=== PATIENT | male | born 1975 | race Caucasian/White ===

== ENCOUNTER 2017-09-21 14:52 | Inpatient (IN) | payer OTHER ==
[~2017-09-21] VITALS: Ht 180.3 cm; Wt 109.6 kg
[~2017-09-21 14:52] MED LIST: ACET325; CENTTAB9; DIPH2%T; HYDR10TA16
[2017-09-21 17:54] VITALS: BP 137/89; PULSE 87; RESP 17; TEMP 98.7; O2SAT 99
[2017-09-21] MEDS ORDERED: LORazepam 2 MG/ML VIAL IV PUSH PRN ×4 (18:30)
[2017-09-21] MEDS ORDERED: ALUMINUM/MAGNESIUM/SIMETH 30 ML CUP PO PRN (18:30)
[2017-09-21] MEDS ORDERED: hydrOXYzine HCL 50 MG TAB PO PRN (18:30)
[2017-09-21] MEDS ORDERED: MAGNESIUM HYDROXIDE SUSP 30 ML CUP PO PRN (18:30)
[2017-09-21] MEDS ORDERED: LORazepam 1 MG TAB PO PRN (18:30)
[2017-09-21] MEDS ORDERED: FLUMAZENIL 0.5 MG/5 ML VIAL IV PUSH PRN (18:30)
[2017-09-21] MEDS ORDERED: BENZTROPINE MESYLATE 1 MG TAB PO PRN (18:30)
[2017-09-21] MEDS ORDERED: BENZTROPINE MESYLATE 2 MG/2 ML VIAL IM PRN (18:30)
[2017-09-21] MEDS ORDERED: diphenhydrAMINE HCL 50 MG CAP PO PRN (18:30)
[2017-09-21] MEDS ORDERED: LORazepam 2 MG TAB PO PRN (18:30)
[2017-09-21] MEDS ORDERED: ACETAMINOPHEN 325 MG TAB PO PRN (18:30)
[2017-09-22 05:45] VITALS: BP 129/82; PULSE 90; RESP 17; TEMP 97.5; O2SAT 98
[2017-09-22] MEDS ORDERED: LEVOTHYROXINE SODIUM 50 MCG TAB PO SCH (06:00)
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
[2017-09-22 07:57] LABS: BASOPHIL # 0.1 TH/MM3 (0-0.2); BASOPHIL % 0.9 % (0.0-2.0); EOSINOPHIL # 0.1 TH/MM3 (0-0.4); EOSINOPHIL % 1.6 % (0.0-4.0); HEMATOCRIT 45.9 % (39.0-51.0); HEMO FLAGS DIFF FINAL; LYMPHOCYTE # 2.4 TH/MM3 (1.0-4.8); MEAN CORPUSCULAR HEMOGLOBIN 29.6 PG (27.0-34.0); MONO % 8.5 % (0.0-8.0); PLATELET COUNT 330 TH/MM3 (150-450); RED BLOOD COUNT 5.27 MIL/MM3 (4.50-5.90); RED CELL DISTRIBUTION WIDTH 13.4 % (11.6-17.2); WHITE BLOOD COUNT 8.3 TH/MM3 (4.0-11.0)
[2017-09-22 08:27] LABS: ANION GAP 11 MEQ/L (5-15); AST (GOT) 16 U/L (15-37); BICARBONATE 20.4 MEQ/L (21.0-32.0); BLOOD UREA NITROGEN 12 MG/DL (7-18); CHLORIDE 106 MEQ/L (98-107); GLOMERULAR FILTRATION RATE 79 ML/MIN (>89); POTASSIUM 3.6 MEQ/L (3.5-5.1); SODIUM (NA) 137 MEQ/L (136-145)
[2017-09-22 08:40] LABS: ALKALINE PHOSPHATASE 85 U/L (45-117); ALT (GPT) 43 U/L (12-78); HDL CHOLESTEROL 55.8 MG/DL (40.0-60.0); LDL CHOLESTEROL 138 MG/DL (0-99); TOTAL BILIRUBIN ADULT 0.4 MG/DL (0.2-1.0)
[2017-09-22] MEDS ORDERED: THIAMINE HCL 100 MG TAB PO SCH (09:00)
[2017-09-22] MEDS ORDERED: LISINOPRIL 20 MG TAB PO SCH (09:00)
[2017-09-22] MEDS ORDERED: NICOTINE 21 MG/24 HR PATCH T-DERMAL SCH (09:00)
[2017-09-22] MEDS ORDERED: REMOVE OLD PATCH T-DERMAL SCH (09:00)
[2017-09-22] MEDS ORDERED: FOLIC ACID 1 MG TAB PO SCH (09:00)
[2017-09-22] MEDS ORDERED: LEVO.05 PO (10:57)
[2017-09-22] MEDS ORDERED: LISI-515 PO (10:57)
[2017-09-22 13:24] LABS: HEMOGLOBIN A1b 1.4 %; HEMOGLOBIN Ao 86.3 %; HEMOGLOBIN P3 3.5 %
== END 2017-09-22 12:10 | disposition short-term general hospital (02) | DRG 897 ==
LOC: H270 17:36
PROVIDERS: ADMIT Psychiatry & Neurology Psychiatry; ATTEND Psychiatry & Neurology Psychiatry
DX: F10.20 Alcohol dependence, uncomplicated (principal); F31.9 Bipolar disorder, unspecified; I10 Essential (primary) hypertension; E03.9 Hypothyroidism, unspecified; E78.5 Hyperlipidemia, unspecified
CPT/HCPCS: 80053; 80061; 83036; 84439; 84443; 85025; Q0163

== ENCOUNTER 2018-05-17 13:19 | Inpatient (IN) ==
[2018-05-17] MEDS ORDERED: Acetaminophen 325 MG Tablet PO PRN (18:15)
[2018-05-17] MEDS ORDERED: Aluminum/Magnesium/Simethacone Susp 30 ML UDC PO PRN (18:15)
[2018-05-17] MEDS ORDERED: traZODone 50 MG Tablet PO SCH (21:00)
[2018-05-18 09:45] LABS: Calcium 9.5 mg/dL (8.5-10.1); Carbon Dioxide 19.8 meq/L (21.0-32.0); Potassium 3.8 meq/L (3.5-5.1)
[2018-05-18 09:56] LABS: Chol/HDL Ratio 4.74 Ratio; HDL Cholesterol 54.8 mg/dL (40.0-60.0); Thyroid Stimulating Hormone 3.15 uIU/mL (0.358-3.740)
--- NOTE | 2018-05-18 11:02 | P.HPPSY ---
Provisional Diagnosis Admission Date: May 17, 2018 16:59 Roscoe I.: 1. Adjustment disorder with mixed disturbance of emotions and conduct 2. Alcohol dependence Roscoe II.: 1. 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 Express and informed consent means consent voluntarily given in writing, by a competent person, after sufficient explanation and disclosure of the subject matter involved to enable the person to make a knowing and willful decision without any element of force, fraud, deceit, duress, or other form of constraint or coercion. This person is 18 years of age or older, is not now known to be incompetent to consent to treatment with a guardian advocate, and does not have a health care surrogate or proxy currently making medical treatment decisions. I have found this person to be one of the following: [x] Competent to provide express and informed consent, as defined above, for voluntary admission to this facility and is competent to provide express and informed consent for treatment. He/she has the consistent capacity to make well reasoned, willful, and knowing decisions concerning his or her medical or mental health treatment. The person fully and consistently understands the purpose of the admission for examination/placement and is fully capable of personally exercising all rights [place] Incompetent to provide express and informed consent to voluntary admission, and this is incompetent to provide express and informed consent to treatment. The person must be transferred to involuntary status and a petition for a guardian advocate filed with the Circuit Court. [] Refusing to provide express and informed consent to voluntary admission but is competent to provide express and informed consent for treatment. The person must be discharged or transferred to involuntary status. Form shall be completed within 24 hours of a person's arrival at the receiving facility and filed in the clinical record of each person: 1. Admitted on a voluntary basis 2. Permitted to provide express and informed consent to his/her own treatment 3. Allowed to transfer from involuntary to voluntary status 4. Prior to permitting a person to consent to his or her own treatment after having been previously found incompetent to consent to treatment. History of Present Illness Capacity: Has capacity Chief Complaint: Overdose History of Present Illness: Mr. Montoya is a 42 year-old male with a history of BPAD and alcohol use issues who presents in transfer from [facility] under a [place] [facility] following poly-drug overdose. Documentation from outside hospital reviewed. Patient took 10 Depakote 500mg tablets and an uncertain quantity of gabapentin and Vistaril. He was admitted medically to [facility] for management of his overdose. Psychiatry consultation was obtained at [facility]. Reviewing our EMR, I note that the patient was admitted under my care last September following an overdose. He was transferred to [facility] under a P.[facility]. at that time. Patient seen and examined with counselor and nurse. Chart reviewed. Case discussed with nursing staff. On my examination today, patient presents as petulant and childlike. He seems more concerned with liberalizing his diet than with his psychiatric issues. He admits to having had suicidal thoughts "for the last month or two" but blames his presenting ingestion on alcohol intoxication. He says that he took 10 Depakote and an uncertain quantity of gabapentin and Vistaril. He denies ongoing suicidal ideation now. He says that he has been feeling more depressed of late because he sees himself as overweight and says that he feels like he is a "failure" and a "reject." He also notes that his mother has a lung nodule and continues to smoke, which is another stressor. He also reports feeling anxious and angry. Cluster B personality traits, chiefly borderline and narcissistic, are prominent. Besides the above, I can elicit no depressive symptoms. He has no hypomanic or manic symptoms at present. He denies any audiovisual hallucinations. I can elicit no delusional material. He denies homicidal ideation. The remainder of the psychiatric ROS is negative. The patient has no acute physical complaints. He begrudgingly agrees to remain for observation but somewhat defiantly notes that we cannot "keep me forever." Past psychiatric history: Patient has a historical diagnosis of bipolar disorder. He had an intake appointment recently at [facility] and has a follow-up appointment scheduled for this Thursday. He denies any interval psychiatric admissions or suicide attempts since he was here last September. He notes that after he was sent to [facility] last time he was referred for outpatient chem dep services. Family history: The patient denies any family history of mental illness or suicide. Chemical dependency history: The patient reports that his alcohol consumption is overall decreased versus his previous hospitalization here. He does note that he has been drinking somewhat more frequently in the last month, at least a couple of times a week. He says that prior to his ingestion and he had had a 60oz marc and 5 beers. He denies a history of DTs or seizures. No other substance use reported. No reported withdrawal symptoms. Social history: The patient lives with his parents. 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 He is high school educated. Denies any history. Denies any active legal issues noting "I have been a good boy." He denies any access to guns or firearms. He is single with no children. He identifies as homosexual. - Inpatient Certification I certify that the inpatient services were ordered in accordance with Medicare regulations governing the order. This includes certification that hospital inpatient services are reasonable and necessary and in the case of services not specified as inpatient-only under 42 CFR 419.22(n), that they are appropriately provided as inpatient services in accordance to with the 2-midnight benchmark under 43 CFR 412.3(e) I certify that inpatient psychiatric hospital services are medically necessary. Evaluation and treatment and/or diagnostic testing are expected to improve the patient's condition. The patient needs on a daily basis, active treatment furnished directly by or requiring the supervision of inpatient psychiatric facility personnel. Estimated Total Length of Stay (Days): 7 (5-7) Plans for Post Hospital Care: Not yet determined Review of Systems All other systems reviewed negative except as stated in HPI ON LICENSE OF [facility] - Medical History Medical History: Medical History (Last Updated 05/17/18 @ 18:56 by Thi Moore RN) ADHD Anxiety Depression Insomnia Schizophrenia - Substance Use Type Alcohol Frequency: 4-5 beers Comment: Patient reports in the past 2 months he has been drinking more than usual. He goes out a few times per week and has drinks when he goes out. Quality Measures - Patient Strengths Patient's strengths (minimum of 2): Attending to basic needs. Verbally fluent. Medications and Allergies Active Medications: Active Medications Acetaminophen (Tylenol) 650 mg PO Q4H PRN PRN Reason: Pain 1-5 or Temp >101F Al Hydrox/Mg Hydrox/Simethicone (Mag-Al Plus Susp Liq) 30 ml PO Q6H PRN PRN Reason: DYSPEPSIA Al Hydroxide/Mg Hydroxide (Milk Of Magnesia Liq) 30 ml PO Q12H PRN PRN Reason: Mild Constipation Folic Acid (Folic Acid) 1 mg PO DAILY [facility] Gabapentin (Neurontin) 300 mg PO TID [facility] Hydroxyzine HCl (Atarax) 50 mg PO Q6H PRN PRN Reason: ANXIETY Lisinopril (Prinivil) 20 mg PO DAILY [facility] Nicotine (Habitrol 14 Mg Patch.24 Hr) 1 patch T-DERMAL DAILY [facility] Pantoprazole Sodium (Protonix) 20 mg PO DAILY [facility] Patch Removal (Remove Old Patch) 0 each T-DERMAL DAILY [facility] Thiamine HCl (Vitamin B1) 100 mg PO DAILY [facility] Trazodone HCl (Desyrel) 50 mg PO HS [facility] Allergies Allergy/AdvReac Type Severity Reaction Status Date / Time cat dander Allergy Severe HIVES Unverified 06/16/17 19:57 egg Allergy Severe VOMIT Unverified 06/16/17 19:57 lactose AdvReac Severe VOMIT Unverified 06/16/17 19:57 Home Medications Medication Instructions Recorded Confirmed Type folic acid 1 mg PO DAILY 05/17/18 05/17/18 History gabapentin 300 mg PO TID 05/17/18 05/17/18 History hydroxyzine pamoate [Vistaril] 50 mg PO BID 05/17/18 05/17/18 History lisinopril 20 mg PO DAILY 05/17/18 05/17/18 History omeprazole 20 mg PO DAILY 05/17/18 05/17/18 History thiamine HCl (vitamin B1) 100 mg PO DAILY 05/17/18 05/17/18 History trazodone 50 mg PO HS 05/17/18 05/17/18 History Results - Labs CBC & Chem 7: 05/18/18 08:40 Labs: Laboratory Results - last 24 hr 05/18/18 08:40 Sodium 138 Potassium 3.8 Chloride 105 Carbon Dioxide 19.8 L Anion Gap 13 BUN 9 Creatinine 1.07 Estimated GFR 76 L Random Glucose 130 H Calcium 9.5 Triglycerides 307 H Cholesterol 260 H LDL Cholesterol, Calc 144 H HDL Cholesterol 54.8 Cholesterol/HDL Ratio 4.74 TSH 3.150 Labs from outside hospital reviewed (from 05/17 unless otherwise noted): CBC unremarkable CMP reveals mild ALT elevation at 62. Ammonia level 51 (down from max of 222 on 05/16) EtOH (05/16) 169 VPA level on 05/17 listed as 19.9 Exam Vital signs: Vital Signs 05/17/18 17:25 05/18/18 05:51 Temperature 98 F 97.6 F Pulse Rate 109 H 68 Respiratory Rate 20 17 Blood Pressure 159/94 H 143/84 H Pulse Oximetry 97 96 Intake & Output 05/17/18 05/18/18 05/18/18 18:59 06:59 18:59 Weight 230 kg Other: Weight On Admission 230 kg Narrative: Physical exam completed by provider at outside hospital. On my examination today, the patient appears to be in no acute physical distress. No motor abnormalities noted. No signs of intoxication or withdrawal noted. Labs and vital signs reviewed: Mental Status Examination Appearance: Appropriate Consciousness: Alert Orientation: x4 Motor Activity: Other (No motor abnormalities noted) Speech: Unremarkable Language: Adequate Fund of Knowledge: Adequate Attention and Concentration: Adequate Memory: Unremarkable (Grossly intact on clinical exam) Mood: Angry, Other (Dysphoric) Affect: Other (Consistent with mood) Thought Process & Associations: Intact, Logical, Linear Thought Content: Other (Minimizing circumstances of presentation here) Hallucination Type: None Delusion Type: None Suicidal Ideation: No (Unclear whether patient is reliable to contract for safety) Suicidal Plan: No Suicidal Intention: No Homicidal Ideation: No Homicidal Plan: No Homicidal Intention: No Insight: Poor Judgment: Impulsive Assessment and Plan - Assessment (1) Adjustment disorder with mixed disturbance of emotions and conduct Code(s): F43.25 - Adjustment disorder with mixed disturbance of emotions and conduct Status: Acute (2) Alcohol dependence Code(s): F10.20 - Alcohol dependence, uncomplicated Status: Chronic (3) Cluster B personality disorder Code(s): F60.9 - Personality disorder, unspecified Status: Suspected - Plan Plan: 42-year-old male with psychiatric history as detailed above who presents in transfer from outside hospital following polydrug overdose. On my examination today, the patient tends to minimize the circumstances of his presentation here and blames his overdose on his alcohol consumption. He does admit, however, that he has been having suicidal thoughts for the last few months and has been feeling more depressed. I suspect that a significant part of patient's presentation is mediated by a cluster B personality disorder with prominent narcissistic and borderline components. I will plan to admit the patient to the inpatient psychiatric unit for observation to ensure that there is no ongoing acute impairment in safety and for stabilization of his mood. Admit inpatient. Voluntary status. Initiate Latuda 40 mg with dinner for mood stabilization. Patient wishes to avoid significant weight gain and akathisia, and it is hoped that Latuda will meet these requirements. Resume gabapentin 300mg TID. Atarax as needed for anxiety. Trazodone as needed for sleep. R/B/ A for medications reviewed with patient. CIWA a scale with Ativan as needed for the management of any withdrawal. Seizure precautions. Check LFTs and ammonia. Vitals every shift. Counselor to see. Collateral information. Disposition planning. Estimated length of stay: 5-7 days. Justification for Continued Inpatient Stay: Medication changes. Monitoring for impairment in safety. Risk for decompensation in less restrictive environment. Discharge Planning: Pending outcome of observation Request Healthcare Surrogate/Guardian Advocate?: No
[2018-05-18 13:04] LABS: Hemoglobin A1c 5.2 % (4.3-6.0)
[2018-05-18] MEDS ORDERED: LORazepam 1 MG Tablet PO PRN (13:31)
[2018-05-18] MEDS: Lisinopril 20 MG Tablet PO SCH (15:28)
[2018-05-18] MEDS: Pantoprazole Sodium 20 MG DR Tablet PO SCH (15:29)
[2018-05-18 16:22] LABS: Albumin 4.3 g/dL (3.4-5.0)
[2018-05-18 16:24] LABS: Total Protein 8.3 g/dL (6.4-8.2)
[2018-05-18] MEDS ORDERED: traZODone 50 MG Tablet PO PRN (21:00)
[2018-05-19] MEDS: Pantoprazole Sodium 20 MG DR Tablet PO SCH (09:25)
[2018-05-19] MEDS: Lisinopril 20 MG Tablet PO SCH (09:26)
[2018-05-19] MEDS: Gabapentin 300 MG Capsule PO SCH ×3 (09:27→17:40)
[2018-05-19] MEDS: Folic Acid 1 MG Tablet PO SCH (09:28)
--- NOTE | 2018-05-19 09:39 | P.PNPSY ---
Subjective Chief Complaint: Overdose Remarks: Patient seen and examined with nurse. Chart reviewed. Case discussed with nursing staff. No behavioral issues noted overnight. On my examination today, the patient is a little faultfinding and cluster B personality traits remain prominent. He says that his mood is "pretty good." He complains of poor sleep saying that he is "a white dude sleeping in the middle of 2 black dudes." He wants a private room or to be moved to the lower acuity unit. I have asked RN to try to accommodate this request. Patient declines titration of trazodone. No SI or HI. He reiterates "you cannot keep me forever." Perseverative on discharge. Says that he has to go back to work because "I am an important person" at work. No medication side effects. No physical complaints. Vital Signs Temp Pulse Resp BP Pulse Ox 05/19/18 06:34 97.3 F L 85 18 102/65 98 05/18/18 18:22 97.8 F 101 H 18 123/78 98 Laboratory Results - last 24 hr 05/18/18 05/18/18 05/18/18 08:40 15:46 15:46 Hemoglobin A1c 5.2 Total Bilirubin 0.4 Direct Bilirubin 0.1 Indirect Bilirubin 0.3 AST 50 H ALT 108 H Alkaline Phosphatase 91 Ammonia 50 H Total Protein 8.3 H Albumin 4.3 Labs reviewed. Mild persistent hyperammonemia off of Depakote without signs or symptoms of hyperammonemic encephalopathy. Mild ongoing transaminitis. Review of Systems All other systems reviewed negative except as stated in HPI Mental Status Examination Appearance: Appropriate Consciousness: Alert Orientation: x4 Motor Activity: Other (No signs of withdrawal noted. No other motor abnormalities noted.) Speech: Unremarkable Language: Adequate Fund of Knowledge: Adequate Attention and Concentration: Adequate Memory: Unremarkable (Grossly intact on clinical exam) Mood: Other ("Pretty good") Affect: Blunt Thought Process & Associations: Intact, Logical, Linear Thought Content: Other (Continues to minimize circumstances of presentation here somewhat) Hallucination Type: None Delusion Type: None Suicidal Ideation: No (No SI voiced) Homicidal Ideation: No (No HI voiced) Insight: Poor Judgment: Impulsive Assessment and Plan - Assessment (1) Adjustment disorder with mixed disturbance of emotions and conduct Code(s): F43.25 - Adjustment disorder with mixed disturbance of emotions and conduct Status: Acute (2) Alcohol dependence Code(s): F10.20 - Alcohol dependence, uncomplicated Status: Chronic (3) Cluster B personality disorder Code(s): F60.9 - Personality disorder, unspecified Status: Suspected - Plan Plan: Continue Latuda as ordered. No akathisia or other side effects from this medication so far. To consider titrating this agent tomorrow. Continue other medications as ordered. LFTs and ammonia level in the morning to trend these values. Continue to monitor on the inpatient unit. Continue other care as ordered. Justification for Continued Inpatient Stay: Monitoring for ongoing impairment in safety, none noted Discharge Planning: Pending outcome of observation Request Healthcare Surrogate/Guardian Advocate?: No
[2018-05-20 07:10] LABS: Total Protein 7.8 g/dL (6.4-8.2)
[2018-05-20] MEDS: Gabapentin 300 MG Capsule PO SCH (08:33)
[2018-05-20] MEDS: Folic Acid 1 MG Tablet PO SCH (08:34)
[2018-05-20] MEDS: Pantoprazole Sodium 20 MG DR Tablet PO SCH (08:34)
[2018-05-20] MEDS: Lisinopril 20 MG Tablet PO SCH (08:34)
--- NOTE | 2018-05-20 13:41 | P.DSPSY ---
Psychiatry Discharge Summary Inpatient Psychiatric care?: Yes Advance Directives: No Mental Health Advance Directive: No Health Care Proxy: No - Admission Admission Date: May 17, 2018 16:59 - Admission Diagnosis (1) Adjustment disorder with mixed disturbance of emotions and conduct Code(s): F43.25 - Adjustment disorder with mixed disturbance of emotions and conduct (2) Alcohol dependence Code(s): F10.20 - Alcohol dependence, uncomplicated (3) Cluster B personality disorder Code(s): F60.9 - Personality disorder, unspecified Brief History: Mr. Montoya is a 42 year-old male with a history of BPAD and alcohol use issues who presents in transfer from [facility] under a [place] [facility] following poly-drug overdose. Documentation from outside hospital reviewed. Patient took 10 Depakote 500mg tablets and an uncertain quantity of gabapentin and Vistaril. He was admitted medically to [place] for management of his overdose. Psychiatry consultation was obtained at [place]. Reviewing our EMR, I note that the patient was admitted under my care last September following an overdose. He was transferred to [facility] under a [facility]. at that time. Patient seen and examined with counselor and nurse. Chart reviewed. Case discussed with nursing staff. On my examination today, patient presents as petulant and childlike. He seems more concerned with liberalizing his diet than with his psychiatric issues. He admits to having had suicidal thoughts "for the last month or two" but blames his presenting ingestion on alcohol intoxication. He says that he took 10 Depakote and an uncertain quantity of gabapentin and Vistaril. He denies ongoing suicidal ideation now. He says that he has been feeling more depressed of late because he sees himself as overweight and says that he feels like he is a "failure" and a "reject." He also notes that his mother has a lung nodule and continues to smoke, which is another stressor. He also reports feeling anxious and angry. Cluster B personality traits, chiefly borderline and narcissistic, are prominent. Besides the above, I can elicit no depressive symptoms. He has no hypomanic or manic symptoms at present. He denies any audiovisual hallucinations. I can elicit no delusional material. He denies homicidal ideation. The remainder of the psychiatric ROS is negative. The patient has no acute physical complaints. He begrudgingly agrees to remain for observation but somewhat defiantly notes that we cannot "keep me forever." Past psychiatric history: Patient has a historical diagnosis of bipolar disorder. He had an intake appointment recently at [facility] and has a follow-up appointment scheduled for this Thursday. He denies any interval psychiatric admissions or suicide attempts since he was here last September. He notes that after he was sent to [facility] last time he was referred for outpatient chem dep services. Family history: The patient denies any family history of mental illness or suicide. Chemical dependency history: The patient reports that his alcohol consumption is overall decreased versus his previous hospitalization here. He does note that he has been drinking somewhat more frequently in the last month, at least a couple of times a week. He says that prior to his ingestion and he had had a 60oz marc and 5 beers. He denies a history of DTs or seizures. No other substance use reported. No reported withdrawal symptoms. Social history: The patient lives with his parents. 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 He is high school educated. Denies any history. Denies any active legal issues noting "I have been a good boy." He denies any access to guns or firearms. He is single with no children. He identifies as homosexual. Tobacco Use In Past 30 Days: No How Often Do You Have a Drink Containing Alcohol: 2 to 3 times a week Hospital Course: Patient was admitted to a locked, inpatient psychiatric unit. Appropriate precautions were in place throughout patient's hospital stay. Patient was seen and examined on the unit by psychiatry and also visited by counselor. Psychotropic medications were adjusted. Patient tolerated medication changes well without side effects. There was no evidence of any suicidality or homicidality on the unit. There was no evidence of self-care deficit. Patient was uneventfully transferred from the higher acuity unit to the lower acuity unit and tolerated the milieu of the lower acuity unit well. On the day of discharge: Patient seen and examined with nurse. Chart reviewed. Case discussed with nursing staff. No behavioral issues noted overnight. Case discussed with counselor. Counselor has reached out to patient's mother and instructed her to secure medications and other potential means of self-harm. On my examination today, the patient is insisting on discharge from the inpatient psychiatric unit today. He tells me "my mind is more clear and I am not depressed like I was. I have been able to manage my anger and thoughts." He denies any suicidal or homicidal ideation, intent or plan and contracts for safety. I can elicit no severe depressive or hypomanic/manic symptoms. He denies any audiovisual hallucinations. I can elicit no delusional material. There is no evidence of impairment in reality construction. Cluster B personality traits are extremely prominent. Patient says that he wants to follow up with his outpatient mental health provider tomorrow as scheduled. He denies side effects from medications. No physical complaints. Weighing the relevant factors and based on the available evidence, I medical engineer that the patient does not meet criteria for involuntary psychiatric hospitalization. There is no evidence of imminent risk of harm to self or others from mental illness, nor is there evidence of self-care deficit. I do believe that patient's cluster B personality style confers chronic but not acute or imminent risk, and in any event this risk would not be further ameliorated by a longer inpatient psychiatric hospital stay. Patient substance use is also a chronic risk factor. He tells me that he will attend AA meetings, but I do question his commitment to sobriety. I have suggested that we get him to a residential rehabilitation program today or at least an IOP/PHP for his substance use issues , but he has declined. He is insisting on discharge home today and is capacitated to do so. He leaves AGAINST MEDICAL ADVICE. Psychiatric follow-up as arranged by counselor. Patient is also to follow up with primary care. I have counseled the patient to abstain from substances of abuse including alcohol. I have counseled the patient regarding warning signs for need to return to the psychiatric emergency room as part of a general safety plan. I did prescribe a limited quantity of medications with refills to reduce the risk of impulsive overdose. - Discharge Discharge Date: 05/20/18 - Discharge Diagnosis (1) Adjustment disorder with mixed disturbance of emotions and conduct Diagnosis: Principal (Resolved) Code(s): F43.25 - Adjustment disorder with mixed disturbance of emotions and conduct Status: Acute (2) Cluster B personality disorder Diagnosis: Secondary Code(s): F60.9 - Personality disorder, unspecified Status: Chronic (3) Alcohol dependence Diagnosis: Secondary (Counseled to quit) Code(s): F10.20 - Alcohol dependence, uncomplicated Status: Chronic Discharge Disposition: Home - Discharge Instructions Discharge Diet: Regular Diet Activities You Can Perform: Weight Bearing As Tolerat - Discharge Time > 30 minutes Mental Status Examination Appearance: Appropriate Consciousness: Alert Orientation: x4 Motor Activity: Other (No motor abnormalities noted. No signs of withdrawal noted.) Speech: Unremarkable Language: Adequate Fund of Knowledge: Adequate Attention and Concentration: Adequate Memory: Unremarkable (Grossly intact on clinical exam) Mood: Appropriate, Oppositional Affect: Blunt Thought Process & Associations: Intact, Logical, Goal directed, Linear Thought Content: Appropriate Hallucination Type: None Delusion Type: None Suicidal Ideation: No Suicidal Plan: No Suicidal Intention: No Homicidal Ideation: No Homicidal Plan: No Homicidal Intention: No Mental Status Exam Remarks: Insight is at best fair. Judgment is likely chronically impulsive as a consequence of personality disorder. Discharge/Advance Care Plan - Results Vital Signs: Last Vital Signs Temp 97.8 F 05/20/18 06:00 Pulse 76 05/20/18 06:00 Resp 16 05/20/18 06:00 BP 127/75 05/20/18 06:00 Pulse Ox 98 05/20/18 06:00 Lab Results: Abnormal Lab Results 05/20/18 05/20/18 06:25 06:25 Total Bilirubin 0.6 Direct Bilirubin 0.1 Indirect Bilirubin 0.5 AST 54 H ALT 130 H Alkaline Phosphatase 86 Ammonia 36 H Total Protein 7.8 Albumin 4.0 Laboratory Results Hemoglobin A1c 5.2 % (4.3-6.0) 05/18/18 08:40 Triglycerides 307 mg/dL (42-150) H 05/18/18 08:40 Cholesterol 260 mg/dL (120-200) H 05/18/18 08:40 LDL Cholesterol, Calc 144 mg/dL (0-99) H 05/18/18 08:40 HDL Cholesterol 54.8 mg/dL (40.0-60.0) 05/18/18 08:40 TSH 3.150 uIU/mL (0.358-3.740) 05/18/18 08:40 Summary of Procedures: None done Pending Results: None - Medications Number of antipsychotic medications at discharge: 1 - Discharge Care Plan Goals to Promote Your Health: * To prevent worsening of your condition and complications * To maintain your health at the optimal level Directions to Meet Your Goals: Take your medications as prescribed Follow your dietary instruction Follow activity as directed Keep your appointments as scheduled Take your immunizations and boosters as scheduled If your symptoms worsen call your PCP, if no PCP go to Urgent Care Center or Emergency Room For 25/05 questions related to your inpatient stay or results of tests pending at discharge, please contact Dr. Nick Regalado MD at [phone] Smoking is Dangerous to Your Health. Avoid second hand smoking
== END 2018-05-20 15:21 | disposition left against medical advice (07) ==
LOC: H270 16:59 → H260 05-19 18:23
PROVIDERS: ADMIT Psychiatry & Neurology Psychiatry; ATTEND Psychiatry & Neurology Psychiatry

== ENCOUNTER 2018-05-30 14:56 | Inpatient (IN) ==
[2018-05-30] MEDS ORDERED: Charcoal Activated Liq 25 GM/120 ML Bottle NG/OG ONE (15:11)
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
[2018-05-30 15:31] LABS: Baso # (Auto) 0.1 th/mm3 (0.0-0.2); Baso % (Auto) 1.2 % (0.0-2.0); Eos # (Auto) 0.3 th/mm3 (0.0-0.4); Hematocrit 46.8 % (39.0-51.0); Lymph # (Auto) 3.1 th/mm3 (1.0-4.8); Mean Corpuscular HGB Conc 34.2 % (32.0-36.0); Mean Corpuscular Hemoglobin 30.3 pg (27.0-34.0); Mean Corpuscular Volume 88.6 fL (80.0-100.0); Mean Platelet Volume 7.9 fL (7.0-11.0); Mono # (Auto) 0.8 th/mm3 (0.0-0.9); Mono % (Auto) 9.5 % (0.0-8.0); Neut # (Auto) 4.4 th/mm3 (1.8-7.7); Neut % (Auto) 50.3 % (16.0-70.0); Platelet Count 345 th/mm3 (150-450); Red Blood Count 5.29 mil/mm3 (4.50-5.90); Red Cell Distribution Width 13.2 % (11.6-17.2); White Blood Count 8.8 th/mm3 (4.0-11.0)
[2018-05-30 15:40] LABS: Anion Gap 10 meq/L (5-15)
[2018-05-30 15:48] LABS: Alanine Aminotransferase 59 U/L (12-78); Albumin 4.3 g/dL (3.4-5.0); Alcohol 229 mg/dL (0-5); Alkaline Phosphatase 96 U/L (45-117); Aspartate Aminotransferase 26 U/L (15-37); Blood Urea Nitrogen 7 mg/dL (7-18); Calcium 8.7 mg/dL (8.5-10.1); Carbon Dioxide 21.2 meq/L (21.0-32.0); Chloride 109 meq/L (98-107); Glomerular Filtration Rate 69 mL/min (>89); Glucose,Random 100 mg/dL (74-106); Potassium 3.9 meq/L (3.5-5.1); Sodium 140 meq/L (136-145)
[2018-05-30] MEDS ORDERED: Sod Chloride 0.9% Inj 1,000 ML IV.SIG ONE (15:56)
[2018-05-30] MEDS ORDERED: Sodium Chlor 0.9% Inj 500 ML IV.SIG ONE (15:56)
[2018-05-30] MEDS ORDERED: Dextrose 50% in Water 50 ML Vial IV.PUSH ONE (16:11)
--- NOTE | 2018-05-30 16:12 | XR ---
EXAM DATE: 05/30/2018 4:03 PM EDT AGE/SEX: 42 years / Male INDICATIONS: Vomiting CLINICAL DATA: This is the patient's initial encounter. Patient reports that signs and symptoms have been present for 1 day and indicates a pain score of Nonresponsive. MEDICAL/SURGICAL HISTORY: Non-responsive. Non-responsive. COMPARISON: No prior exams available for comparison. FINDINGS: A single AP view of the chest demonstrates the lungs to be symmetrically aerated without evidence of mass, infiltrate or effusion. Mild cardiomegaly.. Osseous structures are intact. CONCLUSION: Mild prominence cardiac silhouette otherwise negative Electronically signed by: Anton Solano MD 05/30/2018 4:11 PM EDT
[2018-05-30] MEDS ORDERED: Potassium Chlor 20 mEq Premix 20 MEQ/100 ML PIGGYBACK IV.SIG PRN ×2 (16:13)
[2018-05-30] MEDS ORDERED: Magnesium Oxide 400 MG Tablet PO PRN (16:13)
[2018-05-30] MEDS ORDERED: Potassium Phosphate 500 MG Soluble Tablet PO PRN ×2 (16:13)
[2018-05-30] MEDS ORDERED: Magnesium Sulfate Inj 4 GM in Sodium Chlor 0.9% Inj 92 ML IV.SIG PRN (16:13)
[2018-05-30] MEDS ORDERED: Potassium Chloride 25 MEQ Effervescent Tablet PO PRN (16:13)
[2018-05-30] MEDS ORDERED: Potassium Chlor 40 mEq Premix 40 MEQ/100 ML PIGGYBACK IV.SIG PRN ×2 (16:13)
[2018-05-30] MEDS ORDERED: Potassium Phosphate Inj 30 MMOL in Sodium Chlor 0.9% Inj 250 ML IV.SIG PRN (16:13)
[2018-05-30] MEDS ORDERED: Magnesium Sulfate Inj 2 GM in Sodium Chlor 0.9% Inj 96 ML IV.SIG PRN (16:13)
[2018-05-30] MEDS ORDERED: Sodium Phosphate Inj 30 MMOL in Sodium Chlor 0.9% Inj 250 ML IV.SIG PRN (16:13)
[2018-05-30] MEDS ORDERED: Dextrose 50% in Water Syringe 50 ML ONE (16:15)
[2018-05-30] MEDS ORDERED: Enoxaparin Inj 40 MG/0.4 ML Syringe SQ SCH ×2 (16:15→18:00)
[2018-05-30] MEDS ORDERED: Dextrose 10% in Water Inj 1,000 ML IV.CONT SCH (16:30)
--- NOTE | 2018-05-30 17:13 | P.HPCC ---
History of Present Illness Service: Critical care medicine Primary Care Physician: UNKNOWN Chief Complaint: suicidal attempt History of Present Illness: This is a 42-year-old male with a history of bipolar disorder who has been seen 2 additional times this month for suicidal ideation who presents today with additional suicidal ideation. In addition, immediately before coming in a patient took a bottle of approximately twenty 10 mg propranolol tablets. In the emergency department he was given activated charcoal. His glucose initially was over 100 and dropped to 80 at which point he was given an amp of D50. When I interviewed the patient, he does not want to participate in history. He does endorse ongoing suicidal ideation. He denies any other symptoms, specifically denies chest pain, shortness breath, nausea, vomiting, abdominal pain, fever, chills. Review of Systems All other systems reviewed negative except as stated in HPI [facility] - History History Provided By: Patient - Medical History Medical History: Medical History (Last Reviewed 05/25/18 @ 20:05 by KALINA Ferrell) ADHD Anxiety Depression Insomnia Schizophrenia - Tobacco History Second Hand Smoke Exposure: No Tobacco Use In Past 30 Days: No Smoking Status: Never smoker - Alcohol History How Often Do You Have a Drink Containing Alcohol: 2 to 3 times a week - Substance Use History Substance History: No History of Abuse - Travel History Recent Travel Out of the Country Within the Last 8 Weeks: No - Immunization History Tetanus Immunization: Unable to Assess Hx Influenza Vaccine This Season: Unable to Assess Medications and Allergies Active Medications: Active Medications Albuterol (Duoneb Neb (Prn)) 1 ampul NEB Q2HR NEB PRN PRN Reason: WHEEZING Chlorhexidine Gluconate (Chlorhexidine 2% Cloth) 3 pack TOPICAL DAILY@0400 RAVINDER Stop: 06/05/18 03:59 Chlorhexidine Gluconate (Chlorhexidine 2% Cloth) 3 pack TOPICAL DAILY@0400 PRN PRN Reason: Extra cloth needed Stop: 06/05/18 03:59 Enoxaparin Sodium (Lovenox Inj) 40 mg SQ Q24H RAVINDER Famotidine (Pepcid Pf Inj) 20 mg IV.PUSH Q12HR RAVINDER Dextrose (D10w Inj) 1,000 mls @ 50 mls/hr IV.CONT .Q20H RAVINDER Lactated Ringer's (Lr 1000 Ml Inj) 1,000 mls @ 125 mls/hr IV.CONT .Q8H RAVINDER Lactated Ringer's (Lr 1000 Ml Inj) 2,000 mls @ 0 mls/hr IV.SIG BOLUS ONE Stop: 05/30/18 16:18 Magnesium Sulfate Inj 4 gm/ (Sodium Chloride) 100 mls @ 50 mls/hr IV.SIG UNSCH PRN PRN Reason: For Magnesium 0.9 - 1.1 mg/dL Magnesium Sulfate Inj 2 gm/ (Sodium Chloride) 100 mls @ 50 mls/hr IV.SIG UNSCH PRN PRN Reason: For Magnesium 1.2 - 1.6 mg/dL Potassium Chloride (Kcl 40 Meq Premix Inj) 40 meq in 100 mls @ 25 mls/hr IV.SIG Q2H PRN PRN Reason: For Potassium 2.8 - 3.2 mEq/L Potassium Chloride (Kcl 20 Meq Premix Inj) 20 meq in 100 mls @ 50 mls/hr IV.SIG Q2H PRN PRN Reason: For Potassium 3.3 - 3.5 mEq/L Potassium Chloride (Kcl 40 Meq Premix Inj) 40 meq in 100 mls @ 25 mls/hr IV.SIG UNSCH PRN PRN Reason: For Potassium 3.3 - 3.5 mEq/L Potassium Phosphate 30 mmol/ (Sodium Chloride) 260 mls @ 42 mls/hr IV.SIG UNSCH PRN PRN Reason: SEE LABEL COMMENTS Sodium Phosphate 30 mmol/ (Sodium Chloride) 260 mls @ 42 mls/hr IV.SIG UNSCH PRN PRN Reason: For Phosphorus < 2.5 mg/dL Potassium Chloride (Kcl 20 Meq Premix Inj) 20 meq in 100 mls @ 50 mls/hr IV.SIG Q2H PRN PRN Reason: For Potassium 2.8 - 3.2 mEq/L Magnesium Oxide (Mag-Ox) 800 mg PO UNSCH PRN PRN Reason: For Magnesium 1.2 - 1.6 mg/dL Ondansetron HCl (Zofran Inj) 4 mg IV.PUSH Q6H PRN PRN Reason: NAUSEA OR VOMITING Potassium Bicarb/Potassium Chloride (K-Lyte Cl Eff) 50 meq PO UNSCH PRN PRN Reason: For Potassium 3.3 - 3.5 mEq/L Potassium Phosphate (K-Phos Original) 2,000 mg PO Q4H PRN PRN Reason: Phosphorus Less Than 2.5 mg/dL Potassium Phosphate (K-Phos Original) 2,000 mg PO UNSCH PRN PRN Reason: SEE LABEL COMMENTS Sodium Chloride (Ns Flush) 2 ml IV.FLUSH BID RAVINDER Sodium Chloride (Ns Flush) 2 ml IV.FLUSH PRN PRN PRN Reason: FLUSH AFTER USING IV ACCESS Allergies Allergy/AdvReac Type Severity Reaction Status Date / Time cat dander Allergy Severe HIVES Verified 05/19/18 17:22 egg Allergy Severe VOMIT Verified 05/19/18 17:22 Home Medications Medication Instructions Recorded Confirmed Type gabapentin 300 mg PO TID 05/17/18 05/26/18 History hydroxyzine pamoate [Vistaril] 50 mg PO TID PRN 05/17/18 05/26/18 History Results - Labs CBC & Chem 7: 05/30/18 15:10 05/30/18 15:10 Labs: Short CBC 05/30/18 Range/Units 15:10 WBC 8.8 (4.0-11.0) th/mm3 Hgb 16.0 (13.0-17.0) gm/dL Hct 46.8 (39.0-51.0) % Plt Count 345 (150-450) th/mm3 BMP 05/30/18 15:10 Sodium 140 Potassium 3.9 Chloride 109 H Carbon Dioxide 21.2 BUN 7 Creatinine 1.17 Calcium 8.7 Liver Function 05/30/18 Range/Units 15:10 Total Bilirubin 0.2 (0.2-1.0) mg/dL AST 26 (15-37) U/L ALT 59 (12-78) U/L Alkaline Phosphatase 96 (45-117) U/L Albumin 4.3 (3.4-5.0) g/dL - Imaging Impressions Chest X-Ray 05/30/18 15:05 CONCLUSION: Mild prominence cardiac silhouette otherwise negative Exam Vital signs: Vital Signs 05/30/18 15:07 05/30/18 15:10 05/30/18 16:38 Temperature 36.6 C 37.0 C Pulse Rate 91 H 68 Respiratory Rate 18 18 Blood Pressure 118/80 149/85 H 103/59 L Pulse Oximetry 97 98 96 Narrative: GENERAL: Middle-age male, lying in bed with activated charcoal around the mouth. HEENT: Normocephalic. Atraumatic. Pupils equal, round, reactive, conjugate. Mucous membranes are moist NECK: Trachea is midline. There is no JVD. CHEST: Equal chest rise. Room air. CARDIOVASCULAR: Normal rate of 81, regular rhythm. Blood pressure is 117 systolic ABDOMEN: Soft, nontender, nondistended. No guarding. MUSCULOSKELETAL: Pulses 2+. No peripheral edema. NEUROLOGICAL: RASS 0. Flat affect. Follows commands. Caprini VTE Risk Assessment Caprini VTE Risk Assessment: Moderate/High Risk (score >= 2) Caprini Risk Assessment Model: Point Value = 1 Point Value = 2 Point Value = 3 Point Value = 5 Age 41-60 Minor surgery BMI > 25 kg/m2 Swollen legs Varicose veins or History of unexplained or recurrent spontaneous Oral contraceptives or hormone replacement Sepsis (< 1 month) Serious lung disease, including pneumonia (< 1 month) Abnormal pulmonary function Acute myocardial infarction Congestive heart failure (< 1 month) History of inflammatory bowel disease Medical patient at bed rest Age 61-74 Arthroscopic surgery Major open surgery (> 45 min) Laparoscopic surgery (> 45 min) Malignancy Confined to bed (> 72 hours) Immobilizing plaster cast Central venous access Age >= 75 History of VTE Family history of VTE Factor V Leiden Prothrombin [id number] Lupus anticoagulant Anticardiolipin antibodies Elevated serum homocysteine Heparin-induced thrombocytopenia Other congenital or acquired thrombophilia Stroke (< 1 month) Elective arthroplasty Hip, pelvis, or leg fracture Acute spinal cord injury (< 1 month) Prophylaxis Regimen: Total Risk Factor Score Risk Level Prophylaxis Regimen 0-1 Low Early ambulation 2 Moderate Order ONE of the following: *Sequential Compression Device (SCD) *Heparin 5000 units SQ BID 3-4 Higher Order ONE of the following medications: *Heparin 5000 units SQ TID *Enoxaparin/Lovenox 40 mg SQ daily (WT < 150 kg, CrCl > 30 mL/min) *Enoxaparin/Lovenox 30 mg SQ daily (WT < 150 kg, CrCl > 10-29 mL/min) *Enoxaparin/Lovenox 30 mg SQ BID (WT < 150 kg, CrCl > 30 mL/min) AND/OR *Sequential Compression Device (SCD) 5 or more Highest Order ONE of the following medications: *Heparin 5000 units SQ TID (Preferred with Epidurals) *Enoxaparin/Lovenox 40 mg SQ daily (WT < 150 kg, CrCl > 30 mL/min) *Enoxaparin/Lovenox 30 mg SQ daily (WT < 150 kg, CrCl > 10-29 mL/min) *Enoxaparin/Lovenox 30 mg SQ BID (WT < 150 kg, CrCl > 30 mL/min) AND *Sequential Compression Device (SCD) Assessment and Plan - Assessment and Plan Plan: Assessment: 42-year-old male with psychiatric history with multiple recent ER visits for suicidal ideation presents with beta huey overdose after intentional suicide attempt. Patient was placed under Beckford act admit to ICU. Patient is at very high risk for hemogenic changes including hypotension, bradycardia, hypoglycemia, and seizures. Patient remains critically ill. Poison control is been contacted. Beta huey overdose - q1h glucose - d10w @ 50cc/hr - keep on tele - frequent vitals - frequent neuro checks - s/p activated charcoal Suicidal Ideation - [place] Act - psych consult Alcohol dependence - CIWA - mivf Hyperammonemia - lactulose QID SCDs Advance diet as tolerated provided mental status remains stable. Lovenox pepcid Dispo: admit to ICU. This patient remains critically ill with one or more organ systems which are or may become a threat to life. I have spent in excess of 39 minutes discontinuously in the care and management of this patient. This time is exclusive of procedures, and includes, but is not limited to, evaluation of the patient, review of the medical record, discussions with family, consultants, nursing staff, or respiratory therapy, and documentation in the medical record.
[2018-05-30 17:33] LABS: Bilirubin,Urine Negative (Negative); Clarity,Urine Clear (Clear); Color,Urine Straw (Yellw/Straw); Glucose,Urine (UA) 50 mg/dL (Negative); Leukocyte Esterase,Urine Negative (Negative); Nitrite,Urine Negative (Negative); Specific Gravity,Urine 1.002 (1.002-1.035)
[2018-05-30 17:40] LABS: Amphetamine Screen,Urine Neg (Neg); Barbiturate Screen,Urine Neg (Neg); Cannabinoid Screen,Urine Neg (Neg); Cocaine Screen,Urine Neg (Neg)
[2018-05-30 17:41] LABS: Opiate Screen,Urine Neg (Neg)
[2018-05-30] MEDS ORDERED: Acetaminophen 325 MG Tablet PO PRN (20:43)
[2018-05-30] MEDS: Famotidine PF Inj 20 MG/2 ML Vial IV.PUSH SCH (21:00)
[2018-05-31] MEDS ORDERED: Chlorhexidine Gluconate 2% 1 Pack (2 Cloths) TOPICAL PRN (04:00)
[2018-05-31] MEDS ORDERED: Chlorhexidine Gluconate 2% 1 Pack (2 Cloths) TOPICAL SCH (04:00)
[2018-05-31] MEDS: Famotidine PF Inj 20 MG/2 ML Vial IV.PUSH SCH (09:03)
--- NOTE | 2018-05-31 10:35 | P.PN ---
Subjective Interval history: RN denies any deterioration since last night. Patient reports feeling okay. Denies any diaphoresis chest pain palpitations this morning. Blood sugars have been stable as well as vital signs including pulse and blood pressure. Physical Exam Vital signs: Vital Signs 05/30/18 15:07 05/30/18 15:10 05/30/18 16:38 Temperature 98 F 98.6 F Pulse Rate 91 H 68 Respiratory Rate 18 18 Blood Pressure 118/80 149/85 H 103/59 L Pulse Oximetry 97 98 96 05/30/18 17:42 05/30/18 18:19 05/30/18 18:41 Temperature 97.6 F 98.4 F Pulse Rate 70 87 Respiratory Rate 18 18 Blood Pressure 96/52 L 158/78 H 138/67 Pulse Oximetry 96 96 05/30/18 19:47 05/30/18 20:00 05/30/18 21:15 Temperature 97.7 F Pulse Rate 63 65 Respiratory Rate 12 Blood Pressure 113/69 104/72 Pulse Oximetry 97 05/30/18 21:16 05/30/18 21:30 05/30/18 21:45 Temperature Pulse Rate 74 73 72 Respiratory Rate 26 H 26 H 20 Blood Pressure 114/68 108/56 L Pulse Oximetry 99 99 94 L 05/30/18 22:00 05/30/18 22:15 05/30/18 22:30 Temperature Pulse Rate 72 71 71 Respiratory Rate 20 18 20 Blood Pressure 111/59 L 102/58 L 98/51 L Pulse Oximetry 96 96 96 05/30/18 22:45 05/30/18 23:00 05/30/18 23:15 Temperature Pulse Rate 72 76 80 Respiratory Rate 19 18 20 Blood Pressure 101/52 L 105/55 L 110/55 L Pulse Oximetry 96 97 98 05/30/18 23:30 05/30/18 23:45 05/31/18 00:00 Temperature Pulse Rate 76 75 69 Respiratory Rate 24 29 H 17 Blood Pressure 105/56 L 111/64 109/67 Pulse Oximetry 97 97 98 05/31/18 00:15 05/31/18 00:30 05/31/18 00:34 Temperature Pulse Rate 69 67 Respiratory Rate 25 H 25 H Blood Pressure 114/67 108/67 108/64 Pulse Oximetry 98 97 05/31/18 00:45 05/31/18 01:00 05/31/18 01:51 Temperature Pulse Rate 71 70 69 Respiratory Rate 22 26 H 28 H Blood Pressure 108/66 111/67 119/72 Pulse Oximetry 98 98 98 05/31/18 02:00 05/31/18 02:15 05/31/18 02:30 Temperature Pulse Rate 65 63 63 Respiratory Rate 23 24 24 Blood Pressure 119/74 125/75 122/77 Pulse Oximetry 98 98 97 05/31/18 02:45 05/31/18 03:00 05/31/18 03:15 Temperature Pulse Rate 59 L 61 65 Respiratory Rate 20 22 22 Blood Pressure 126/80 120/79 121/80 Pulse Oximetry 97 98 97 05/31/18 03:30 05/31/18 03:45 05/31/18 04:00 Temperature 98.9 F Pulse Rate 60 59 L 63 Respiratory Rate 18 18 20 Blood Pressure 114/75 125/78 125/77 Pulse Oximetry 96 97 97 05/31/18 04:15 05/31/18 04:30 05/31/18 04:45 Temperature Pulse Rate 65 65 61 Respiratory Rate 20 17 19 Blood Pressure 124/70 123/74 124/72 Pulse Oximetry 97 97 98 05/31/18 05:00 05/31/18 05:15 05/31/18 05:30 Temperature Pulse Rate 56 L 67 55 L Respiratory Rate 18 13 16 Blood Pressure 114/73 115/79 98/63 L Pulse Oximetry 97 97 97 05/31/18 05:45 05/31/18 06:00 05/31/18 07:56 Temperature 98.5 F Pulse Rate 60 57 L 63 Respiratory Rate 16 15 18 Blood Pressure 107/64 97/63 L 127/79 Pulse Oximetry 97 96 05/31/18 07:59 05/31/18 09:00 Temperature 98.6 F Pulse Rate 59 L Respiratory Rate 12 Blood Pressure 127/87 Pulse Oximetry 96 99 Intake & Output 05/30/18 05/31/18 05/31/18 18:59 06:59 18:59 Output Total 1849 Balance -1849 / -1849 Weight 110.2 kg Output: Urine 1849 Other: Date of Last Bowel Movement 05/31/18 05/31/18 # Bowel Movements 2 Narrative: Clear lungs bilaterally, unlabored breathing Heart sounds regular rate rhythm, no murmurs Pleasant demeanor, alert and oriented 3 Results - Labs CBC & Chem 7: 05/30/18 15:10 05/30/18 15:10 Laboratory Results - last 24 hr 05/30/18 05/30/18 05/30/18 15:10 15:10 15:10 WBC 8.8 RBC 5.29 Hgb 16.0 Hct 46.8 MCV 88.6 MCH 30.3 MCHC 34.2 RDW 13.2 Plt Count 345 MPV 7.9 Neut % (Auto) 50.3 Lymph % (Auto) 35.0 Humphreys % (Auto) 9.5 H Eos % (Auto) 4.0 Baso % (Auto) 1.2 Neut # (Auto) 4.4 Lymph # (Auto) 3.1 Humphreys # (Auto) 0.8 Eos # (Auto) 0.3 Baso # (Auto) 0.1 WBC Differential . Differential Comment Auto diff final Sodium 140 Potassium 3.9 Chloride 109 H Carbon Dioxide 21.2 Anion Gap 10 BUN 7 Creatinine 1.17 Estimated GFR 69 L POC Glucose Random Glucose 100 Calcium 8.7 Total Bilirubin 0.2 AST 26 ALT 59 Alkaline Phosphatase 96 Ammonia Total Protein 8.0 Albumin 4.3 Urine Color Urine Clarity Urine pH Ur Specific [place] Urine Protein Urine Glucose (UA) Urine Ketones Urine Occult Blood Urine Nitrate Urine Bilirubin Urine Urobilinogen Ur Leukocyte Esterase Urine RBC Urine WBC Micro UA Comment Urine Culture Comments Nasal Screen MRSA (PCR) Salicylates Less than 1.7 L Urine Opiates Screen Acetaminophen Less than 2.0 L Ur Barbiturates Screen Ur Amphetamines Screen U Benzodiazepines Scrn Urine Cocaine Screen U Cannabinoids Screen Serum Alcohol 229 H 05/30/18 05/30/18 05/30/18 15:17 15:35 16:06 WBC RBC Hgb Hct MCV MCH MCHC RDW Plt Count MPV Neut % (Auto) Lymph % (Auto) Humphreys % (Auto) Eos % (Auto) Baso % (Auto) Neut # (Auto) Lymph # (Auto) Humphreys # (Auto) Eos # (Auto) Baso # (Auto) WBC Differential Differential Comment Sodium Potassium Chloride Carbon Dioxide Anion Gap BUN Creatinine Estimated GFR POC Glucose 156 H 81 Random Glucose Calcium Total Bilirubin AST ALT Alkaline Phosphatase Ammonia 75 H Total Protein Albumin Urine Color Urine Clarity Urine pH Ur Specific [place] Urine Protein Urine Glucose (UA) Urine Ketones Urine Occult Blood Urine Nitrate Urine Bilirubin Urine Urobilinogen Ur Leukocyte Esterase Urine RBC Urine WBC Micro UA Comment Urine Culture Comments Nasal Screen MRSA (PCR) Salicylates Urine Opiates Screen Acetaminophen Ur Barbiturates Screen Ur Amphetamines Screen U Benzodiazepines Scrn Urine Cocaine Screen U Cannabinoids Screen Serum Alcohol 05/30/18 05/30/18 05/30/18 16:44 16:55 16:55 WBC RBC Hgb Hct MCV MCH MCHC RDW Plt Count MPV Neut % (Auto) Lymph % (Auto) Humphreys % (Auto) Eos % (Auto) Baso % (Auto) Neut # (Auto) Lymph # (Auto) Humphreys # (Auto) Eos # (Auto) Baso # (Auto) WBC Differential Differential Comment Sodium Potassium Chloride Carbon Dioxide Anion Gap BUN Creatinine Estimated GFR POC Glucose 141 H Random Glucose Calcium Total Bilirubin AST ALT Alkaline Phosphatase Ammonia Total Protein Albumin Urine Color Straw Urine Clarity Clear Urine pH 6.0 Ur Specific [place] 1.002 Urine Protein Negative Urine Glucose (UA) 50 Urine Ketones Negative Urine Occult Blood Negative Urine Nitrate Negative Urine Bilirubin Negative Urine Urobilinogen Less than 2 Ur Leukocyte Esterase Negative Urine RBC Less than 1 Urine WBC Less than 1 Micro UA Comment Culture not ind Urine Culture Comments Culture not ind Nasal Screen MRSA (PCR) Salicylates Urine Opiates Screen Neg Acetaminophen Ur Barbiturates Screen Neg Ur Amphetamines Screen Neg U Benzodiazepines Scrn Neg Urine Cocaine Screen Neg U Cannabinoids Screen Neg Serum Alcohol 05/30/18 05/30/18 05/30/18 17:18 17:38 18:10 WBC RBC Hgb Hct MCV MCH MCHC RDW Plt Count MPV Neut % (Auto) Lymph % (Auto) Humphreys % (Auto) Eos % (Auto) Baso % (Auto) Neut # (Auto) Lymph # (Auto) Humphreys # (Auto) Eos # (Auto) Baso # (Auto) WBC Differential Differential Comment Sodium Potassium Chloride Carbon Dioxide Anion Gap BUN Creatinine Estimated GFR POC Glucose 88 189 H 108 Random Glucose Calcium Total Bilirubin AST ALT Alkaline Phosphatase Ammonia Total Protein Albumin Urine Color Urine Clarity Urine pH Ur Specific [place] Urine Protein Urine Glucose (UA) Urine Ketones Urine Occult Blood Urine Nitrate Urine Bilirubin Urine Urobilinogen Ur Leukocyte Esterase Urine RBC Urine WBC Micro UA Comment Urine Culture Comments Nasal Screen MRSA (PCR) Salicylates Urine Opiates Screen Acetaminophen Ur Barbiturates Screen Ur Amphetamines Screen U Benzodiazepines Scrn Urine Cocaine Screen U Cannabinoids Screen Serum Alcohol 05/30/18 05/30/18 05/30/18 18:44 19:51 21:29 WBC RBC Hgb Hct MCV MCH MCHC RDW Plt Count MPV Neut % (Auto) Lymph % (Auto) Humphreys % (Auto) Eos % (Auto) Baso % (Auto) Neut # (Auto) Lymph # (Auto) Humphreys # (Auto) Eos # (Auto) Baso # (Auto) WBC Differential Differential Comment Sodium Potassium Chloride Carbon Dioxide Anion Gap BUN Creatinine Estimated GFR POC Glucose 95 110 126 H Random Glucose Calcium Total Bilirubin AST ALT Alkaline Phosphatase Ammonia Total Protein Albumin Urine Color Urine Clarity Urine pH Ur Specific [place] Urine Protein Urine Glucose (UA) Urine Ketones Urine Occult Blood Urine Nitrate Urine Bilirubin Urine Urobilinogen Ur Leukocyte Esterase Urine RBC Urine WBC Micro UA Comment Urine Culture Comments Nasal Screen MRSA (PCR) Salicylates Urine Opiates Screen Acetaminophen Ur Barbiturates Screen Ur Amphetamines Screen U Benzodiazepines Scrn Urine Cocaine Screen U Cannabinoids Screen Serum Alcohol 05/30/18 05/30/18 05/30/18 21:30 22:22 23:21 WBC RBC Hgb Hct MCV MCH MCHC RDW Plt Count MPV Neut % (Auto) Lymph % (Auto) Humphreys % (Auto) Eos % (Auto) Baso % (Auto) Neut # (Auto) Lymph # (Auto) Humphreys # (Auto) Eos # (Auto) Baso # (Auto) WBC Differential Differential Comment Sodium Potassium Chloride Carbon Dioxide Anion Gap BUN Creatinine Estimated GFR POC Glucose 260 H 108 Random Glucose Calcium Total Bilirubin AST ALT Alkaline Phosphatase Ammonia Total Protein Albumin Urine Color Urine Clarity Urine pH Ur Specific [place] Urine Protein Urine Glucose (UA) Urine Ketones Urine Occult Blood Urine Nitrate Urine Bilirubin Urine Urobilinogen Ur Leukocyte Esterase Urine RBC Urine WBC Micro UA Comment Urine Culture Comments Nasal Screen MRSA (PCR) Not detected Salicylates Urine Opiates Screen Acetaminophen Ur Barbiturates Screen Ur Amphetamines Screen U Benzodiazepines Scrn Urine Cocaine Screen U Cannabinoids Screen Serum Alcohol 05/31/18 05/31/18 05/31/18 00:16 01:25 02:37 WBC RBC Hgb Hct MCV MCH MCHC RDW Plt Count MPV Neut % (Auto) Lymph % (Auto) Humphreys % (Auto) Eos % (Auto) Baso % (Auto) Neut # (Auto) Lymph # (Auto) Humphreys # (Auto) Eos # (Auto) Baso # (Auto) WBC Differential Differential Comment Sodium Potassium Chloride Carbon Dioxide Anion Gap BUN Creatinine Estimated GFR POC Glucose 103 130 H 119 H Random Glucose Calcium Total Bilirubin AST ALT Alkaline Phosphatase Ammonia Total Protein Albumin Urine Color Urine Clarity Urine pH Ur Specific [place] Urine Protein Urine Glucose (UA) Urine Ketones Urine Occult Blood Urine Nitrate Urine Bilirubin Urine Urobilinogen Ur Leukocyte Esterase Urine RBC Urine WBC Micro UA Comment Urine Culture Comments Nasal Screen MRSA (PCR) Salicylates Urine Opiates Screen Acetaminophen Ur Barbiturates Screen Ur Amphetamines Screen U Benzodiazepines Scrn Urine Cocaine Screen U Cannabinoids Screen Serum Alcohol 05/31/18 05/31/18 05/31/18 03:13 06:11 07:49 WBC RBC Hgb Hct MCV MCH MCHC RDW Plt Count MPV Neut % (Auto) Lymph % (Auto) Humphreys % (Auto) Eos % (Auto) Baso % (Auto) Neut # (Auto) Lymph # (Auto) Humphreys # (Auto) Eos # (Auto) Baso # (Auto) WBC Differential Differential Comment Sodium Potassium Chloride Carbon Dioxide Anion Gap BUN Creatinine Estimated GFR POC Glucose 113 H 115 H 104 Random Glucose Calcium Total Bilirubin AST ALT Alkaline Phosphatase Ammonia Total Protein Albumin Urine Color Urine Clarity Urine pH Ur Specific [place] Urine Protein Urine Glucose (UA) Urine Ketones Urine Occult Blood Urine Nitrate Urine Bilirubin Urine Urobilinogen Ur Leukocyte Esterase Urine RBC Urine WBC Micro UA Comment Urine Culture Comments Nasal Screen MRSA (PCR) Salicylates Urine Opiates Screen Acetaminophen Ur Barbiturates Screen Ur Amphetamines Screen U Benzodiazepines Scrn Urine Cocaine Screen U Cannabinoids Screen Serum Alcohol 05/31/18 09:14 WBC RBC Hgb Hct MCV MCH MCHC RDW Plt Count MPV Neut % (Auto) Lymph % (Auto) Humphreys % (Auto) Eos % (Auto) Baso % (Auto) Neut # (Auto) Lymph # (Auto) Humphreys # (Auto) Eos # (Auto) Baso # (Auto) WBC Differential Differential Comment Sodium Potassium Chloride Carbon Dioxide Anion Gap BUN Creatinine Estimated GFR POC Glucose 106 Random Glucose Calcium Total Bilirubin AST ALT Alkaline Phosphatase Ammonia Total Protein Albumin Urine Color Urine Clarity Urine pH Ur Specific [place] Urine Protein Urine Glucose (UA) Urine Ketones Urine Occult Blood Urine Nitrate Urine Bilirubin Urine Urobilinogen Ur Leukocyte Esterase Urine RBC Urine WBC Micro UA Comment Urine Culture Comments Nasal Screen MRSA (PCR) Salicylates Urine Opiates Screen Acetaminophen Ur Barbiturates Screen Ur Amphetamines Screen U Benzodiazepines Scrn Urine Cocaine Screen U Cannabinoids Screen Serum Alcohol - Imaging Impressions Chest X-Ray 05/30/18 15:05 CONCLUSION: Mild prominence cardiac silhouette otherwise negative Assessment and Plan - Plan Assessment: 42-year-old male with psychiatric history with multiple recent ER visits for suicidal ideation presents with beta huey overdose after intentional suicide attempt. Patient was placed under Beck[place] act admit to ICU. Patient is at very high risk for hemogenic changes including hypotension, bradycardia, hypoglycemia, and seizures. No longer critically ill. Beta huey overdose -Discussed with poison control a second time, given that the patient has been asymptomatic over the last 6 hours there is no further workup or monitoring or treatment warranted. I will stop his frequent glucose checks in the D10 infusion. Medically cleared for psych facility if psych facility is indeed warranted. - s/p activated charcoal Suicidal Ideation - [place] Act - awaiting psych consult Alcohol dependence - CIWA Hyperammonemia - lactulose QID Lovenox Addendum: Discussed with psychiatry, no further psychiatric admission criteria met. Patient has met maximal benefit from hospitalization is clinically stable for discharge.
--- NOTE | 2018-05-31 15:26 | P.CONPSY ---
Provisional Diagnosis Admission Date: May 30, 2018 17:53 Fenton I.: Alcohol-induced mood disorder, alcohol use disorder, history of depression History of Present Illness Service: Critical care Primary Care Provider: UNKNOWN Chief Complaint: suicidal attempt History of Present Illness: The patient is a 42-year-old man, domiciled with his parents in [place], single, employed in the [employer], with psychiatric history of depression, schizoaffective disorder, alcohol use disorder, multiple psychiatric admissions, he was admitted at the beginning of May under the care of Dr. Regalado, the recommendation reviewed, he has been seen in the ER a couple of times after that with alcohol related issues, outpatient psychiatric care in [facility] for dual diagnosis, he is on Latuda 40 mg, medical history hypertension, who presented in the ER with additional suicidal ideation. In addition, immediately before coming in a patient took a bottle of approximately twenty 10 mg propranolol tablets. In the emergency department he was given activated charcoal. His glucose initially was over 100 and dropped to 80 at which point he was given an amp of D50. When I interviewed the patient, he does not want to participate in history. He does endorse ongoing suicidal ideation. He denies any other symptoms, specifically denies chest pain, shortness breath, nausea, vomiting, abdominal pain, fever, chills. On initial presentation BAL was 229. On psychiatric evaluation today the patient is calm, cooperative, pleasant. The patient explains that he was drunk when he took the pills. He says that he was trying to boost alcohol with the propanolol. He says that he has been drinking propanolol for akathisia. He denies suicidal attempt with her overdose, "I was just trying to feel better". Patient is future oriented, he says that he wants to go back to her work, continue his normal life. The patient denies depressive symptoms, denies anhedonia, hopelessness, helplessness, he denies suicidal and homicidal ideation, he denies visual and auditory hallucinations. The patient is fully oriented 3. Patient reports that he has been following the recommendations of Dr. Hylton at the beginning of the month, he has been going to [facility], taking her Latuda and his next appointment is in 2 weeks. Past psychiatric history: The patient reports that he has history of depression , schizoaffective disorder, multiple psychiatric hospitalizations, last hospitalization was here at [facility] at the beginning of May, outpatient psychiatric care in [facility], he is Latuda 40 mg, propanolol 2 mg twice daily for akathisia. She denies previous suicidal attempts, he does have accidental overdoses. Medical history: He reports history of hypertension Substance history: He reports daily use of alcohol Social history: The patient was born and raised in [place], he lives with his parents in [facility], single, employed Review of Systems Constitutional: Denies anorexia, Denies body ache(s), Denies chills, Denies daytime sleepiness, Denies excessive sweating, Denies fatigue, Denies fever(s), Denies headache(s), Denies increased appetite, Denies lack of energy, Denies malaise, Denies night sweats, Denies weakness, Denies weight gain, Denies weight loss, Denies other Eyes: Denies blind spots, Denies blurry vision, Denies bulging eyes, Denies change in vision, Denies double vision, Denies discharge, Denies dry eyes, Denies floaters, Denies irritation, Denies itchy eyes, Denies loss of vision, Denies pain, Denies requires corrective lenses, Denies sensitivity to light, Denies other Ears, Nose, Mouth, and Throat: Denies abnormal hearing, Denies bleeding gums, Denies bad breath, Denies change in voice, Denies dental pain, Denies difficulty swallowing, Denies dizziness, Denies dry mouth, Denies ear discharge , Denies ear pain, Denies facial pain, Denies headache(s), Denies hearing loss, Denies hoarseness, Denies lip swelling, Denies nosebleed, Denies mouth lesions, Denies mouth pain, Denies nasal congestion, Denies nasal discharge, Denies nasal obstruction, Denies nasal trauma, Denies neck lump, Denies neck pain, Denies nose pain, Denies pain with swallowing, Denies poor balance, Denies post nasal drip, Denies ringing in the ears, Denies sinus pain, Denies sinus pressure , Denies sore throat, Denies throat swelling, Denies tongue swelling, Denies other Cardiovascular: Denies chest pain, Denies chest pain at rest, Denies chest pain with activity, Denies excessive sweating, Denies fainting, Denies fast heart rate, Denies foot swelling, Denies generalized swelling, Denies irregular heart rhythm, Denies leg pain with activity, Denies leg sores, Denies leg swelling, Denies lightheadedness, Denies radiating jaw, neck or arm pain, Denies rapid, pounding, or irregular heartbeat, Denies shortness of breath, Denies shortness of breath with activity, Denies shortness of breath when lying down, Denies shortness of breath causing sudden awakening, Denies slow heart rate, Denies other Respiratory: Denies change in phlegm color, Denies chest congestion, Denies cough, Denies coughing up blood, Denies excessive phlegm production, Denies pain on inspiration, Denies pain with cough, Denies shortness of breath, Denies shortness of breath with activity, Denies snoring, Denies stridor, Denies wheezing, Denies other Gastrointestinal: Denies abdominal pain, Denies belching, Denies black, tarry stools, Denies bloating, Denies bright, red blood in stools, Denies change in bowel habits, Denies constant urge to pass stool, Denies change in stools, Denies coffee ground vomit, Denies constipation, Denies cramping, Denies difficulty swallowing, Denies excessive passing of gas, Denies feeling full early, Denies heartburn, Denies incontinent of stools, Denies loose stools, Denies nausea, Denies pain with swallowing, Denies vomiting, Denies vomiting blood, Denies other Genitourinary: Denies blood in semen, Denies blood in urine, Denies decreased urination, Denies difficulty urinating, Denies difficulty with ejaculations, Denies erectile dysfunction, Denies genital lesions, Denies genital pain, Denies painful urination, Denies side pain, Denies frequent nighttime urination , Denies painful ejaculations, Denies penile discharge, Denies scrotal swelling , Denies testicle lump, Denies testicle pain, Denies urinary frequency, Denies urinary hesitancy, Denies urinary incontinence, Denies urinary urgency, Denies other Musculoskeletal: Denies abnormal walking, Denies back pain, Denies body aches, Denies decreased muscle mass, Denies deformity, Denies joint pain, Denies joint swelling, Denies limited joint movement, Denies loss of height, Denies muscle cramps, Denies muscle weakness, Denies neck pain, Denies numbness, Denies radiating pain into limb, Denies stiffness, Denies tingling, Denies other Skin/Breast: Denies acne, Denies bleeding lesions, Denies boil, Denies breast swelling, Denies breast skin changes, Denies breast pain, Denies breast lump, Denies change in breast shape, Denies change in hair, Denies change in skin color, Denies changing lesions, Denies dry skin, Denies excessive hair growth, Denies hair loss, Denies itching, Denies lesions, Denies nail changes, Denies new lesions, Denies nipple discharge, Denies non-healing lesions, Denies redness , Denies sensitivity to light, Denies rash, Denies skin pain, Denies skin ulcer , Denies sores, Denies stretch george, Denies unusual bruising, Denies wounds, Denies yellowing of the skin, Denies other Neurologic: Denies abnormal hearing, Denies abnormal movements, Denies abnormal speech, Denies abnormal walking, Denies behavioral changes, Denies burning sensations, Denies confusion, Denies dizziness, Denies fainting, Denies frequent falls, Denies headache(s), Denies lack of coordination, Denies localized weakness, Denies loss of vision, Denies memory loss, Denies numbness, Denies other visual disturbances, Denies radiating pain, Denies restless legs, Denies convulsions, Denies seizure-like activity, Denies sensory deficit, Denies tingling, Denies tingling/numbness/burning sensations, Denies tremor(s), Denies unsteadiness, Denies weakness, Denies other Psychiatric: Denies abnormal sleep pattern, Denies anxiety, Denies behavioral changes, Denies change in appetite, Denies change in sex drive, Denies confusion , Denies depression, Denies difficulty concentrating, Denies hearing things others do not hear, Denies hopelessness, Denies irritability, Denies lack of enjoyment, Denies memory loss, Denies mood swings, Denies panic attacks, Denies paranoia, Denies seeing things others do not see, Denies sensing things others do not sense, Denies tactile hallucinations, Denies thoughts of hurting/killing others, Denies thoughts of hurting/killing yourself, Denies other Endocrine: Denies cold intolerance, Denies excessive sweating, Denies flushing, Denies heat intolerance, Denies increased hunger, Denies increased thirst, Denies increased urination, Denies rapid, pounding, or irregular heartbeat, Denies other PMFSH - History History Provided By: Patient - Medical History Medical History: Medical History (Last Reviewed 05/30/18 @ 19:07 by Nawaf Davenprot DO) ADHD Anxiety Depression Insomnia Schizophrenia - Tobacco History Second Hand Smoke Exposure: No Tobacco Use In Past 30 Days: Yes Smoking Status: Former smoker Tobacco Type: Cigarettes - Alcohol History How Often Do You Have a Drink Containing Alcohol: 4 or more times a week - Substance Use History Substance History: No History of Abuse - Substance Use Type Alcohol Type: Liquor , Beer Status: Active Route Used: By Mouth Frequency: daily - Travel History Recent Travel in the [facility] Within the Last 8 Weeks: No Recent Travel Out of the Country Within the Last 8 Weeks: No - Immunization History Tetanus Immunization: Unable to Assess Hx Influenza Vaccine This Season: Unable to Assess Medications and Allergies Active Medications: Active Medications Acetaminophen (Tylenol) 650 mg PO Q4H PRN PRN Reason: HEADACHE Last Admin: 05/30/18 23:24 Dose: 650 mg Albuterol (Duoneb Neb (Prn)) 1 ampul NEB Q2HR NEB PRN PRN Reason: WHEEZING Chlorhexidine Gluconate (Chlorhexidine 2% Cloth) 3 pack TOPICAL DAILY@0400 RAVINDER Stop: 06/05/18 03:59 Last Admin: 05/31/18 06:13 Dose: 3 pack Chlorhexidine Gluconate (Chlorhexidine 2% Cloth) 3 pack TOPICAL DAILY@0400 PRN PRN Reason: Extra cloth needed Stop: 06/05/18 03:59 Enoxaparin Sodium (Lovenox Inj) 40 mg SQ Q24H RAVINDER Famotidine (Pepcid Pf Inj) 20 mg IV.PUSH Q12HR RAVINDER Last Admin: 05/31/18 09:03 Dose: 20 mg Lactulose (Lactulose Liq) 30 ml PO Q6H RAVINDER Last Admin: 05/31/18 11:46 Dose: Not Given Ondansetron HCl (Zofran Odt) 4 mg PO Q6H PRN PRN Reason: NAUSEA OR VOMITING Sodium Chloride (Ns Flush) 2 ml IV.FLUSH BID RAVINDER Last Admin: 05/31/18 09:04 Dose: 2 ml Sodium Chloride (Ns Flush) 2 ml IV.FLUSH PRN PRN PRN Reason: FLUSH AFTER USING IV ACCESS Allergies Allergy/AdvReac Type Severity Reaction Status Date / Time cat dander Allergy Severe HIVES Verified 05/19/18 17:22 egg Allergy Severe VOMIT Verified 05/19/18 17:22 Home Medications Medication Instructions Recorded Confirmed Type gabapentin 300 mg PO TID 05/17/18 05/26/18 History hydroxyzine pamoate [Vistaril] 50 mg PO TID PRN 05/17/18 05/26/18 History Exam Vital signs: Vital Signs 05/30/18 16:38 05/30/18 17:42 05/30/18 18:19 Temperature 98.6 F 97.6 F 98.4 F Pulse Rate 68 70 87 Respiratory Rate 18 18 18 Blood Pressure 103/59 L 96/52 L 158/78 H Pulse Oximetry 96 96 96 05/30/18 18:41 05/30/18 19:47 05/30/18 20:00 Temperature 97.7 F Pulse Rate 63 65 Respiratory Rate 12 Blood Pressure 138/67 113/69 Pulse Oximetry 97 05/30/18 21:15 05/30/18 21:16 05/30/18 21:30 Temperature Pulse Rate 74 73 Respiratory Rate 26 H 26 H Blood Pressure 104/72 114/68 Pulse Oximetry 99 99 05/30/18 21:45 05/30/18 22:00 05/30/18 22:15 Temperature Pulse Rate 72 72 71 Respiratory Rate 20 20 18 Blood Pressure 108/56 L 111/59 L 102/58 L Pulse Oximetry 94 L 96 96 05/30/18 22:30 05/30/18 22:45 05/30/18 23:00 Temperature Pulse Rate 71 72 76 Respiratory Rate 20 19 18 Blood Pressure 98/51 L 101/52 L 105/55 L Pulse Oximetry 96 96 97 05/30/18 23:15 05/30/18 23:30 05/30/18 23:45 Temperature Pulse Rate 80 76 75 Respiratory Rate 20 24 29 H Blood Pressure 110/55 L 105/56 L 111/64 Pulse Oximetry 98 97 97 05/31/18 00:00 05/31/18 00:15 05/31/18 00:30 Temperature Pulse Rate 69 69 Respiratory Rate 17 25 H Blood Pressure 109/67 114/67 108/67 Pulse Oximetry 98 98 05/31/18 00:34 05/31/18 00:45 05/31/18 01:00 Temperature Pulse Rate 67 71 70 Respiratory Rate 25 H 22 26 H Blood Pressure 108/64 108/66 111/67 Pulse Oximetry 97 98 98 05/31/18 01:51 05/31/18 02:00 05/31/18 02:15 Temperature Pulse Rate 69 65 63 Respiratory Rate 28 H 23 24 Blood Pressure 119/72 119/74 125/75 Pulse Oximetry 98 98 98 05/31/18 02:30 05/31/18 02:45 05/31/18 03:00 Temperature Pulse Rate 63 59 L 61 Respiratory Rate 24 20 22 Blood Pressure 122/77 126/80 120/79 Pulse Oximetry 97 97 98 05/31/18 03:15 05/31/18 03:30 05/31/18 03:45 Temperature Pulse Rate 65 60 59 L Respiratory Rate 22 18 18 Blood Pressure 121/80 114/75 125/78 Pulse Oximetry 97 96 97 05/31/18 04:00 05/31/18 04:15 05/31/18 04:30 Temperature 98.9 F Pulse Rate 63 65 65 Respiratory Rate 20 20 17 Blood Pressure 125/77 124/70 123/74 Pulse Oximetry 97 97 97 05/31/18 04:45 05/31/18 05:00 05/31/18 05:15 Temperature Pulse Rate 61 56 L 67 Respiratory Rate 19 18 13 Blood Pressure 124/72 114/73 115/79 Pulse Oximetry 98 97 97 05/31/18 05:30 05/31/18 05:45 05/31/18 06:00 Temperature Pulse Rate 55 L 60 57 L Respiratory Rate 16 16 15 Blood Pressure 98/63 L 107/64 97/63 L Pulse Oximetry 97 97 96 05/31/18 07:56 05/31/18 07:59 05/31/18 09:00 Temperature 98.5 F 98.6 F Pulse Rate 63 59 L Respiratory Rate 18 12 Blood Pressure 127/79 127/87 Pulse Oximetry 96 99 05/31/18 10:00 05/31/18 11:00 05/31/18 12:00 Temperature 98.7 F 98.9 F 97.3 F L Pulse Rate 67 67 Respiratory Rate 16 18 Blood Pressure 148/83 H Pulse Oximetry 98 97 Intake & Output 05/30/18 05/31/18 05/31/18 18:59 06:59 18:59 Output Total 1849 Balance -1849 / -1849 Weight 110.2 kg 106.5 kg Output: Urine 1849 Other: Date of Last Bowel Movement 05/31/18 05/31/18 # Bowel Movements 2 Narrative: No EPS, no withdrawal symptoms, no psychomotor agitation retardation - Constitutional no acute distress - Routine HEENT Exam Head: Present: normocephalic ENT: Present: mucous membranes moist Mental Status Examination Appearance: Appropriate Consciousness: Alert Orientation: x4 Motor Activity: Normal gait Speech: Unremarkable Language: Adequate Fund of Knowledge: Adequate Attention and Concentration: Adequate Memory: Unremarkable Mood: Appropriate Affect: Appropriate Thought Process & Associations: Intact Thought Content: Appropriate Hallucination Type: None Delusion Type: None Suicidal Ideation: No Suicidal Plan: No Suicidal Intention: No Homicidal Ideation: No Homicidal Plan: No Homicidal Intention: No Insight: Fair Judgment: Impulsive Assessment and Plan - Plan Plan: Estimated LOS: [] days Psychiatric evaluation today the patient does not present any neuropsychiatric symptoms are required an immediate psychiatric intervention. The patient denies a dermatology of depression, benedicto, anxiety and psychosis. The patient denies suicidal and homicidal ideation. He denies visual and auditory hallucinations. The patient has an extensive psychiatric history of ADHD, anxiety, depression, schizoaffective disorder, multiple psychiatric hospitalizations, a severe alcohol use disorder. He was hospitalized in psychiatry about a month ago under the care of Dr. Regalado, he was discharged with very clear recommendations. The patient has continued using alcohol, his recent overdose with propranolol seems to be more an impulsive use of this medication in order to boost the alcohol no unintentional suicidal attempt. He does not meet criteria for involuntary psychiatric admission clinic continue his outpatient psychiatric/substance use treatment in [facility]. The patient will remain in [facility] here. We will start Latuda 40 mg, propanolol 10 mg twice daily for akathisia. No admission indicated. Support provided. Justification for Continued Inpatient Stay: No admission is indicated at this moment
== END 2018-05-31 17:52 | disposition home or self-care (01) ==
LOC: NEPC 14:56 → NEDA 17:53 → HIMC 19:00 → N04 05-31 11:56
PROVIDERS: ADMIT Hospitalist; ATTEND Hospitalist
DX: T46.5X2A Poisoning by other antihypertensive drugs, intentional self-harm, initial encounter; F90.9 Attention-deficit hyperactivity disorder, unspecified type; G47.00 Insomnia, unspecified; T42.6X2A Poisoning by other antiepileptic and sedative-hypnotic drugs, intentional self-harm, initial encounter; T43.592A Poisoning by other antipsychotics and neuroleptics, intentional self-harm, initial encounter; F41.9 Anxiety disorder, unspecified; E16.2 Hypoglycemia, unspecified; F25.9 Schizoaffective disorder, unspecified; I10 Essential (primary) hypertension; Z87.891 Personal history of nicotine dependence; F10.24 Alcohol dependence with alcohol-induced mood disorder; E72.20 Disorder of urea cycle metabolism, unspecified; Z91.5 Personal history of self-harm; Y90.7 Blood alcohol level of 200-239 mg/100 ml; Z91.012 Allergy to eggs